=== PATIENT | female | born 1955 | race Caucasian/White ===

== ENCOUNTER 2017-09-23 21:19 | Emergency (ER) | payer BC ==
[~2017-09-23] VITALS: Ht 162.6 cm; Wt 78.9 kg
[~2017-09-23 21:19] MED LIST: MULT-506 PO
[2017-09-23 21:58] VITALS: TEMP 36.9; Ht 162.6 cm; Wt 78.9 kg
[2017-09-23 23:18] VITALS: BP 127/77; PULSE 60; O2SAT 97
--- NOTE | 2017-09-23 23:59 | EMERGENCY ROOM VISIT NOTE ---
History First contact with patient: 23:25 Chief Complaint: EYE ASSESSMENT Stated Complaint: FLASHING LIGHT AND FLOATERS IN EYE History of Present Illness The patient is a 62 year old female who presents to the Emergency Room with complaints of floaters and flashing lights in her right eye. The patient reports that since she woke up this morning, she has had floaters in her right eye. She states that these appear to be like black threads across her vision. She states there are 3-4 floaters, with one larger than the others. They are black but do not obstruct her vision. She states that this evening, she developed some flashes in the lateral part of her eye which have not been constant. Her overall vision is not decreased. She denies any pain in the eye. She denies any recent trauma to the eye. The patient reports that she had some similar issues in this eye approximately 40 years ago. She was told that this was due to her control pills and has not had any issues since then. Review of Systems A complete 10 point review of systems was reviewed with the patient with pertinent positives and negatives as per history of present illness. All else were negative. Past Medical/Surgical History Medical Problems: (1) No significant active problems Social History Smoking Status: Never Smoker Housing Status: lives with family Current/Historical Medications Scheduled Multivitamin (Multivitamin), 1 TAB PO DAILY Physical Exam Vital Signs Date Time Temp Pulse Resp B/P (MAP) Pulse Ox O2 Delivery O2 Flow Rate FiO2 09/23/17 23:18 60 18 127/77 97 Room Air 09/23/17 21:58 36.9 60 18 127/85 98 Room Air Right Eye Acuity: 20/40 Left Eye Acuity: 20/25 Physical Exam VITALS: Vitals are noted on the nurse's note and reviewed by myself. Vital signs stable. GENERAL: This is a 62-year-old female, in no acute distress, nondiaphoretic, well-developed well-nourished. SKIN: The skin was without rashes. HEAD: Normocephalic atraumatic. EYES: Pupils equal round and reactive to light and accommodation. Conjunctivae without injection. Extraocular movements intact. Funduscopic exam shows no hemorrhages or papilledema. NEURO: Patient was alert and oriented to person place and time. Medical Decision & Procedures Medical Decision Differential diagnosis includes retinal detachment, vitreous floaters, central retinal artery occlusion, central retinal vein occlusion, retinal tear, among others. The patient was evaluated as above. Her exam is unremarkable. She presents with floaters and flashes in the eye which began this morning. Patient's history is concerning for possible retinal detachment. I spoke with the leather carver on-call, Dr. Durán, who recommended that the patient follow-up first thing in the morning for a dilated eye exam. Patient was happy with this plan of care. She was given Dr. Durán's office information and instructed to call first thing in the morning to make an appointment. She verbalized her understanding of my assessment and treatment plan and was discharged home in good condition. Medication Reconcilliation Current Medication List: was personally reviewed by me Blood Pressure Screening Patient's blood pressure: Normal blood pressure Impression Primary Impression: Floaters in visual field Departure Information Dispostion Home / Self-Care Condition GOOD Referrals Cecilia Jamison D.O. (PCP) Jayden Durán MD Patient Instructions My [facility] Additional Instructions Contact Dr. Durán's office first thing in the morning to schedule an appointment. Let them know that you were seen in the emergency department and we talked to Dr. Durán. Do not make any sudden movements of your head tonight. Return to the ER if you have any concerning or worsening symptoms. Problem Qualifiers Primary Impression: Floaters in visual field Laterality: right Qualified Codes: H43.391 - Other vitreous opacities, right eye
== END 2017-09-23 23:48 | disposition home or self-care (01) ==
LOC: C.EDB 21:19
DX: H43.391 Other vitreous opacities, right eye (principal)

== ENCOUNTER 2020-02-20 18:50 | Inpatient (IN) ==
[2020-02-20] MEDS ORDERED: ONDANSETRON INJ 2 MG/ML 2 ML VIAL IV STA (19:19)
[2020-02-20] MEDS ORDERED: KETOROLAC TROMETHAMINE 15 MG/ML VIAL IV STA (19:19)
[2020-02-20] MEDS ORDERED: CEFEPIME 2,000 MG/20 ML VIAL IV STA (19:19)
[2020-02-20] MEDS ORDERED: ACETAMINOPHEN 1,000 MG/100 ML VIAL IV STA (19:19)
--- NOTE | 2020-02-20 19:25 | Emergency Department Note ---
Impression & Plan Sepsis, Cellulitis, Fever, Leukocytosis ED Provider Note NAME: JORY HUFFMAN AGE: 65 SEX: F : 1955 ARRIVES VIA: Walk-In INFORMANT: [Patient] ED PROVIDER(S): [Giorgio Pan MD] CHIEF COMPLAINT: Fever HISTORY OF PRESENT ILLNESS: The patient is a 65-year-old female who was had about 24 hours of symptoms. She has had fever, headache, body aches, nausea. She feels washed out. She is quite achy. All her pain is a 9 on a scale 1 out of 10. There has been no co ugh or congestion, no stuffy nose or sore throat. No problems with her taste or smell. She has not had urinary complaints, diarrhea. She has not had rash, no known tick bites. She has noticed some mild dyspnea. She has not had any sick contacts. No known coronavirus exposures. She just feels awful in general. REVIEW OF SYSTEMS: See HPI for pertinent positives and negatives. A total of ten systems were reviewed and were otherwise negative. PMHx/PSHx: See Below SOCIAL HISTORY: See Below. PHYSICAL EXAM: GENERAL: Patient is in no acute distress. She is wearing a mask. HEENT: No acute trauma, normocephalic atraumatic, mucous membranes moist, no nasal congestion, no scleral icterus. NECK: No stridor, no adenopathy, no meningismus, trachea is midline. LUNGS: No respiratory distress, no obvious wheezing, speaks in full sentences. HEART: Regular rate, equal radial pulses bilaterally. Equal carotid pulses bilaterally. ABDOMEN: Soft, nontender, bowel sounds positive, no hernias, no peritonitis. EXTREMITIES: No cyanosis or edema, full range of motion of all the joints without pain or difficulty, no signs for acute trauma. The patient has a healing lesion to the anterior aspect of the left ankle. Proximal to this is erythema and warmth consistent with cellulitis NEUROLOGIC: Oriented x 3, no acute motor or sensory deficits, no focal weakness. SKIN: No jaundice, no diaphoresis. DIFFERENTIAL DIAGNOSIS: Sepsis, UTI, pneumonia, metabolic, electrolyte abnormalities, Lyme disease, cellulitis, anaplasmosis, coronavirus, cardiac sources, intracerebral event, toxicologic, neurologic, as well as other pathologies. EMERGENCY DEPARTMENT COURSE/PROCEDURES: ECG: Indication was weakness. The ECG shows a normal sinus rhythm with a rate of 80. The QTc is 392. There are no PVCs, no ST elevation. There is diffuse n onspecific ST change. No old EKGs to use for comparison. Continuous Cardiac Monitoring: An order was placed for continuous cardiac monitoring. The monitor shows a rate of 86 with normal sinus rhythm. Critical Care Note: I have personally spent greater than 36 minutes of critical care time in the direct management of this patient. This includes bedside care, interpretation of diagnostic studies, and testing, discussion with consultants, patient, and family members, and other required patient management activities. This 36 minutes is in excess of all separately billable procedures. MEDICAL DECISION MAKING: There is a moderate leukocytosis at 14,000, this could be consistent with infection. There is a normal hemoglobin and platelet count. No coagulopathy. No significant electrolyte abnormality or kidney failure. Lactic acid level is not elevated making severe sepsis less likely. No concerning liver enzyme elevation. Procalcitonin level is somewhat elevated at 1.28. Urinalysis is consistent with possible infection versus contamination. Lyme disease testing was negative. Coronavirus testing was negative. Chest from does not show pneumonia or CHF. The patient was not toxic but she was febrile. She appeared to have a left lower extremity cellulitis. The patient was aggressively managed. The patient received IV saline for hydration. She was given 1.5 L. She received IV Zofran, IV Toradol, IV Tylenol, IV cefepime. The cefepime was given for empiric antibiotic coverage. The patient does meet criteria for sepsis. She has a left lower extremity cellulitis. She is feeling improved since being treated here in the ED. Given her findings, given her work-up, I do think a hospital stay is warranted. IV antibiotics, monitoring and hydration are warranted. I spoke to the patient and her , I spoke with case management. The on- call hospitalist was consulted. Past Med/Surg History Medical History No significant past medical history Social History Smoking Status: Never smoker Feels Safe at Home: Yes Allergies Allergies Allergy/AdvReac Type Severity Reaction Status Date / Time iodine Allergy Unknown RASH Unverified 02/20/20 20:43 Home Meds Home Medications Medication Instructions Recorded Confirmed multivitamin 1 tab PO DAILY@1200 02/20/20 02/20/20 Results & Data (ED) Vital Signs Vital Signs - 24 hr 02/20/20 18:52 02/20/20 19:47 02/20/20 19:49 Temperature 39.4 C H Temperature Source Oral Pulse Rate 92 H 81 Pulse Rate [Left Finger] Respiratory Rate 20 31 H Blood Pressure 114/67 124/67 Blood Pressure [Left Arm] Blood Pressure Mean 82 77 Blood Pressure Mean [Left Arm] Pulse Oximetry 99 97 Oxygen Delivery Method Room Air Room Air Sepsis Recent Fever Within 48 Hours Yes Sepsis New/Unexplained Change in Mental Status No Sepsis Action Taken by Nursing No Action Required 02/20/20 20:06 02/20/20 20:56 02/20/20 22:14 Temperature 38.2 C H 38.3 C H Temperature Source Oral Oral Pulse Rate Pulse Rate [Left Finger] 86 76 Respiratory Rate 20 20 Blood Pressure Blood Pressure [Left Arm] 113/66 111/67 Blood Pressure Mean Blood Pressure Mean [Left Arm] 81 81 Pulse Oximetry 96 97 Oxygen Delivery Method Sepsis Recent Fever Within 48 Hours Sepsis New/Unexplained Change in Mental Status Sepsis Action Taken by Jail Medications Current Medication List: was personally reviewed by me Laboratory Data Attestation: I reviewed the patient's lab results. Result diagrams: 02/20/20 20:03 02/20/20 20:03 Lab Results 02/20/20 02/20/20 02/20/20 Range/Units 19:47 19:47 20:03 WBC 14.61 H (4.8-10.8) K/uL RBC 4.43 (4.2-5.4) M/uL Hgb 13.7 (12.0-16.0) g/dL Hct 39.7 (37-47) % MCV 89.6 (80-100) fL MCH 30.9 (25-34) pg MCHC 34.5 (32-36) g/dL RDW Std Deviation 48.6 H (36.4-46.3) fL RDW Coeff of Amanda 14.8 H (11.5-14.5) % Plt Count 229 (130-400) K/uL MPV 11.2 H (7.4-10.4) fL Immature Gran % (Auto) 0.3 % Neut % (Auto) 94.3 % Lymph % (Auto) 2.5 % [place] % (Auto) 2.8 % Eos % (Auto) 0.0 % Baso % (Auto) 0.1 % Neut # (Auto) 13.77 H (1.4-6.5) K/uL Lymph # (Auto) 0.37 L (1.2-3.4) K/uL [place] # (Auto) 0.41 (0.11-0.59) K/uL Eos # (Auto) 0.00 (0-0.5) K/uL Baso # (Auto) 0.01 (0-0.2) K/uL Immature Gran # (Auto) 0.05 H (0.00-0.02) K/uL PT (9.0-12.0) Seconds INR (0.9-1.1) APTT (21.0-31.0) Seconds PTT Ratio Sodium (136-145) mmol/L Potassium (3.5-5.1) mmol/L Chloride (98-107) mmol/L Carbon Dioxide (21-32) mmol/L Anion Gap (3-11) BUN (7-18) mg/dl Creatinine (0.6-1.2) mg/dl Est Cr Clr Drug Dosing ml/min Est GFR ( Amer) Est GFR (Non-Af Amer) BUN/Creatinine Ratio (10-20) Glucose (70-99) mg/dl Lactate (0.4-2.0) mmol/L Calcium (8.5-10.1) mg/dl Magnesium (1.8-2.4) mg/dl Total Bilirubin (0.2-1) mg/dl AST (15-37) U/L ALT (12-78) U/L Alkaline Phosphatase (45-117) U/L Total Protein (6.4-8.2) gm/dl Albumin (3.4-5.0) gm/dl Globulin (2.5-4.0) gm/dl Albumin/Globulin Ratio (0.9-2) Procalcitonin (0-0.5) ng/ml Urine Color Urine Appearance (Clear) Urine pH (4.5-7.5) Ur Specific [place] (1.000-1.030) Urine Protein (Negative) Urine Glucose (UA) (Negative) Urine Ketones (Negative) Urine Blood (Negative) Urine Nitrite (Negative) Urine Bilirubin (Negative) Urine Urobilinogen (Negative) Ur Leukocyte Esterase (Negative) Urine WBC (Auto) (0-5) /hpf Urine RBC (Auto) (0-4) /hpf U Hyaline Cast (Auto) (0-5) /lpf U Epithel Cells (Auto) (0-5) /lpf Urine Bacteria (Auto) (Negative) Lyme Disease IgG Ab (Negative) Lyme Disease IgM Ab (Negative) COVID-19 Eval Order Covid19 [facility] SARS-CoV-2, RNA, NAAT NEGATIVE (NEGATIVE) 02/20/20 02/20/20 02/20/20 Range/Units 20:03 20:03 20:03 WBC (4.8-10.8) K/uL RBC (4.2-5.4) M/uL Hgb (12.0-16.0) g/dL Hct (37-47) % MCV (80-100) fL MCH (25-34) pg MCHC (32-36) g/dL RDW Std Deviation (36.4-46.3) fL RDW Coeff of Amanda (11.5-14.5) % Plt Count (130-400) K/uL MPV (7.4-10.4) fL Immature Gran % (Auto) % Neut % (Auto) % Lymph % (Auto) % [place] % (Auto) % Eos % (Auto) % Baso % (Auto) % Neut # (Auto) (1.4-6.5) K/uL Lymph # (Auto) (1.2-3.4) K/uL [place] # (Auto) (0.11-0.59) K/uL Eos # (Auto) (0-0.5) K/uL Baso # (Auto) (0-0.2) K/uL Immature Gran # (Auto) (0.00-0.02) K/uL PT 11.5 (9.0-12.0) Seconds INR 1.1 (0.9-1.1) APTT 33.5 H (21.0-31.0) Seconds PTT Ratio 1.2 Sodium 138 (136-145) mmol/L Potassium 3.6 (3.5-5.1) mmol/L Chloride 109 H (98-107) mmol/L Carbon Dioxide 19 L (21-32) mmol/L Anion Gap 10.0 (3-11) BUN 18 (7-18) mg/dl Creatinine 0.81 (0.6-1.2) mg/dl Est Cr Clr Drug Dosing 72.3 ml/min Est GFR ( Amer) 87.7 Est GFR (Non-Af Amer) 75.7 BUN/Creatinine Ratio 22.6 H (10-20) Glucose 110 H (70-99) mg/dl Lactate 1.4 (0.4-2.0) mmol/L Calcium 8.9 (8.5-10.1) mg/dl Magnesium 2.0 (1.8-2.4) mg/dl Total Bilirubin 0.5 (0.2-1) mg/dl AST 19 (15-37) U/L ALT 26 (12-78) U/L Alkaline Phosphatase 61 (45-117) U/L Total Protein 6.7 (6.4-8.2) gm/dl Albumin 3.3 L (3.4-5.0) gm/dl Globulin 3.4 (2.5-4.0) gm/dl Albumin/Globulin Ratio 1.0 (0.9-2) Procalcitonin (0-0.5) ng/ml Urine Color Urine Appearance (Clear) Urine pH (4.5-7.5) Ur Specific [place] (1.000-1.030) Urine Protein (Negative) Urine Glucose (UA) (Negative) Urine Ketones (Negative) Urine Blood (Negative) Urine Nitrite (Negative) Urine Bilirubin (Negative) Urine Urobilinogen (Negative) Ur Leukocyte Esterase (Negative) Urine WBC (Auto) (0-5) /hpf Urine RBC (Auto) (0-4) /hpf U Hyaline Cast (Auto) (0-5) /lpf U Epithel Cells (Auto) (0-5) /lpf Urine Bacteria (Auto) (Negative) Lyme Disease IgG Ab (Negative) Lyme Disease IgM Ab (Negative) COVID-19 Eval Order SARS-CoV-2, RNA, NAAT (NEGATIVE) 02/20/20 02/20/20 Range/Units 20:03 20:57 WBC (4.8-10.8) K/uL RBC (4.2-5.4) M/uL Hgb (12.0-16.0) g/dL Hct (37-47) % MCV (80-100) fL MCH (25-34) pg MCHC (32-36) g/dL RDW Std Deviation (36.4-46.3) fL RDW Coeff of Amanda (11.5-14.5) % Plt Count (130-400) K/uL MPV (7.4-10.4) fL Immature Gran % (Auto) % Neut % (Auto) % Lymph % (Auto) % [place] % (Auto) % Eos % (Auto) % Baso % (Auto) % Neut # (Auto) (1.4-6.5) K/uL Lymph # (Auto) (1.2-3.4) K/uL [place] # (Auto) (0.11-0.59) K/uL Eos # (Auto) (0-0.5) K/uL Baso # (Auto) (0-0.2) K/uL Immature Gran # (Auto) (0.00-0.02) K/uL PT (9.0-12.0) Seconds INR (0.9-1.1) APTT (21.0-31.0) Seconds PTT Ratio Sodium (136-145) mmol/L Potassium (3.5-5.1) mmol/L Chloride (98-107) mmol/L Carbon Dioxide (21-32) mmol/L Anion Gap (3-11) BUN (7-18) mg/dl Creatinine (0.6-1.2) mg/dl Est Cr Clr Drug Dosing ml/min Est GFR ( Amer) Est GFR (Non-Af Amer) BUN/Creatinine Ratio (10-20) Glucose (70-99) mg/dl Lactate (0.4-2.0) mmol/L Calcium (8.5-10.1) mg/dl Magnesium (1.8-2.4) mg/dl Total Bilirubin (0.2-1) mg/dl AST (15-37) U/L ALT (12-78) U/L Alkaline Phosphatase (45-117) U/L Total Protein (6.4-8.2) gm/dl Albumin (3.4-5.0) gm/dl Globulin (2.5-4.0) gm/dl Albumin/Globulin Ratio (0.9-2) Procalcitonin 1.28 H (0-0.5) ng/ml Urine Color Yellow Urine Appearance Cloudy A (Clear) Urine pH 5.0 (4.5-7.5) Ur Specific [place] 1.033 H (1.000-1.030) Urine Protein Trace H (Negative) Urine Glucose (UA) Negative (Negative) Urine Ketones 1+ H (Negative) Urine Blood Negative (Negative) Urine Nitrite Negative (Negative) Urine Bilirubin Negative (Negative) Urine Urobilinogen Negative (Negative) Ur Leukocyte Esterase Trace H (Negative) Urine WBC (Auto) 10-30 H (0-5) /hpf Urine RBC (Auto) 0-4 (0-4) /hpf U Hyaline Cast (Auto) 1-5 (0-5) /lpf U Epithel Cells (Auto) >30 H (0-5) /lpf Urine Bacteria (Auto) Negative (Negative) Lyme Disease IgG Ab Negative (Negative) Lyme Disease IgM Ab Negative (Negative) COVID-19 Eval Order SARS-CoV-2, RNA, NAAT (NEGATIVE) Administered Medications Discontinued Medications Sodium Chloride (Nss 1000ml) 1,000 mls @ 999 mls/hr IV .Q1H1M KARLA Stop: 02/20/20 20:30 Last Infusion: 02/20/20 20:57 Dose: 0 mls/hr Documented by: [id number] Admin: 02/20/20 19:53 Dose: 999 mls/hr Documented by: [id number] Cefepime HCl (Maxipime) 2,000 mg in 20 mls @ 5 mls/min IV NOW STA; Protocol Stop: 02/20/20 19:22 Last Admin: 02/20/20 20:04 Dose: 5 mls/min Documented by: [id number] Acetaminophen (Ofirmev) 1,000 mg in 100 mls @ 400 mls/hr IV NOW STA Stop: 02/20/20 19:33 Last Infusion: 02/20/20 20:13 Dose: 0 mls/hr Documented by: [id number] Admin: 02/20/20 19:53 Dose: 400 mls/hr Documented by: [id number] Sodium Chloride (Nss 1000ml) 500 mls @ 999 mls/hr IV .Q31M ONE Stop: 02/20/20 21:16 Last Infusion: 02/20/20 21:48 Dose: 0 mls/hr Documented by: [id number] Admin: 02/20/20 21:10 Dose: 999 mls/hr Documented by: [id number] Ketorolac Tromethamine (Ketorolac Tromethamine 15 Mg/Ml Vial) 15 mg IV NOW STA Stop: 02/20/20 19:20 Last Admin: 02/20/20 19:53 Dose: 15 mg Documented by: [id number] Ondansetron HCl (Ondansetron Inj 2 Mg/Ml 2 Ml Vial) 4 mg IV NOW STA Stop: 02/20/20 19:20 Last Admin: 02/20/20 19:53 Dose: 4 mg Documented by: [id number] Imaging Data Radiologist's Impression: SINGLE VIEW CHEST CLINICAL HISTORY: Sepsis. FINDINGS: 2 AP, portable, semierect chest radiographs are obtained. No prior studies are available for comparison at the time of dictation. The examination is degraded by portable technique and patient rotation. The heart is top normal for projection. The pulmonary vasculature is noncongested. Nonspecific interstitial thickening is likely chronic. No airspace consolidation or large pleural effusion is identified. No pneumothorax is seen. The skeletal structures are osteopenic. The bony thorax is grossly intact. IMPRESSION: No acute cardiopulmonary abnormality is identified. Blood Pressure Blood Pressure Findings: Normal blood pressure Discharge Plan Visit Data Chief Complaint: Fever Stated Complaint: FEVER, HEADACHE, CHILLS, NAUSEA, BODY ACHES ED Provider: Giorgio Pan Discharge Problem: Sepsis, Cellulitis, Fever, Leukocytosis Patient Disposition: Admitted As Inpatient Condition: Fair Forms Stand Alone Forms: [facility] SocialFlow Prescriptions Prescriptions: No Action multivitamin Tablet 1 tab PO DAILY@1200 RF: 0 Referrals Referrals: PCP,NO [Primary Care Provider] - Discharge Problem: Sepsis Qualifiers: Sepsis type: sepsis due to unspecified organism Sepsis acute organ dysfunction status: without acute organ dysfunction Qualified Code(s): A41.9 - Sepsis, unspecified organism Cellulitis Qualifiers: Site of cellulitis: extremity Site of cellulitis of extremity: lower extremity Laterality: left Qualified Code(s): L03.116 - Cellulitis of left lower limb Fever Qualifiers: Fever type: unspecified Qualified Code(s): R50.9 - Fever, unspecified Leukocytosis Qualifiers: Leukocytosis type: unspecified Qualified Code(s): D72.829 - Elevated white blood cell count, unspecified
[2020-02-20] MEDS ORDERED: SODIUM CHLORIDE 0.9% 1000ML 1,000 ML IV SCH (19:30)
[2020-02-20 20:24] LABS: Basophils # (auto) 0.01 K/uL (0-0.2); Basophils % (auto) 0.1 %; Hematocrit (blood only) 39.7 % (37-47); Hemoglobin 13.7 g/dL (12.0-16.0); Immature Granulocytes # (auto) 0.05 K/uL (0.00-0.02); Immature Granulocytes % (auto) 0.3 %; Lymphocytes # (auto) 0.37 K/uL (1.2-3.4); Lymphocytes % (auto) 2.5 %; Mean Corpuscular Hemoglobin 30.9 pg (25-34); Mean Corpuscular Hgb Conc 34.5 g/dL (32-36); Mean Corpuscular Volume 89.6 fL (80-100); Mean Platelet Volume 11.2 fL (7.4-10.4); Monocytes # (auto) 0.41 K/uL (0.11-0.59); Monocytes % (auto) 2.8 %; Neutrophils # (auto) 13.77 K/uL (1.4-6.5); Neutrophils % (auto) 94.3 %; Platelet Count 229 K/uL (130-400); RDW Coefficient of Variation 14.8 % (11.5-14.5); RDW Standard Deviation 48.6 fL (36.4-46.3); Red Blood Count 4.43 M/uL (4.2-5.4); White Blood Count 14.61 K/uL (4.8-10.8)
--- NOTE | 2020-02-20 20:26 | XRay Report ---
SINGLE VIEW CHEST CLINICAL HISTORY: Sepsis. FINDINGS: 2 AP, portable, semierect chest radiographs are obtained. No prior studies are available fo r comparison at the time of dictation. The examination is degraded by portable technique and patient rotation. The heart is top normal for projection. The pulmonary vasculature is noncongested. Nonspec ific interstitial thickening is likely chronic. No airspace consolidation or large pleural effusion i s identified. No pneumothorax is seen. The skeletal structures are osteopenic. The bony thorax is vandana ssly intact. IMPRESSION: No acute cardiopulmonary abnormality is identified. ACT 112: Negative or not required by law. Electronically signed by: Giorgio White M.D. 02/20/2020 8:25 PM
[2020-02-20 20:35] LABS: INR 1.1 (0.9-1.1); Partial Thromboplastin Ratio 1.2; Partial Thromboplastin Time 33.5 Seconds (21.0-31.0); Prothrombin Time 11.5 Seconds (9.0-12.0)
[2020-02-20 20:41] LABS: Albumin Level 3.3 gm/dl (3.4-5.0); BUN Creatinine Ratio 22.6 (10-20); Calcium 8.9 mg/dl (8.5-10.1); Creatinine Clr Calc Pharmacy 72.3 ml/min; Est GFR (African American) 87.7; Est GFR (Non-African American) 75.7; Potassium 3.6 mmol/L (3.5-5.1)
[2020-02-20 20:44] LABS: Bilirubin,Total 0.5 mg/dl (0.2-1); Globulin 3.4 gm/dl (2.5-4.0); Total Protein 6.7 gm/dl (6.4-8.2)
[2020-02-20] MEDS ORDERED: SODIUM CHLORIDE 0.9% 1000ML 500 ML IV ONE (20:46)
[2020-02-20 21:07] LABS: Procalcitonin 1.28 ng/ml (0-0.5)
[2020-02-20 21:18] LABS: Lyme Ab IgG w/WB Rflx Negative (Negative); Lyme Ab IgM w/WB Rflx Negative (Negative)
[2020-02-20 21:19] LABS: Appearance Urine Cloudy (Clear); Bacteria Urine Automated Negative (Negative); Bilirubin Urine Negative (Negative); Blood Urine Negative (Negative); Color Urine Yellow; Epithelial Cell Urine Auto >30 /lpf (0-5); Glucose Urine UA Negative (Negative); Ketones Urine 1+ (Negative); Leukocyte Esterase Urine Trace (Negative); Nitrite Urine Negative (Negative); Protein Urine Trace (Negative); RBC Urine Automated 0-4 /hpf (0-4); Specific Gravity Urine 1.033 (1.000-1.030); Urobilinogen Urine Negative (Negative)
--- NOTE | 2020-02-20 23:44 | History & Physical Report ---
Date of Service February 20, 2020 Assessment & Plan (1) Sepsis: 65-year-old female with history of bilateral lower extremity edema, mild diastolic CHF, PACs and PVCs, remote history of DVT, Presenting with fever and generalized myalgias. Sepsis likely secondary to left lower leg cellulitis Rule out bacteremia Rule out UTI Rule out anaplasmosis --Presents with a fever of 39.4 heart rate of 92, leukocytosis of 14,000 Lactic acid normal --Chest x-ray no pneumonia, COVID screen negative, --Follow-up blood and urine cultures --Follow-up anaplasmosis screen --Empiric Dapto plus Zosyn Left lower extremity cellulitis, rule out DVT --Has history of DVT in the past --Check Doppler ultrasound Rule out RA, SLE --Patient presents with diffuse arthralgias and myalgias, lower extremity edema, possible malar rash --Follow-up RF, BRI, [id number]-mtphydry DNA, C3/C4/C 50, ESR/CRP, antiphospho lipid antibody Mild diastolic dysfunction --Not on diuretics --Patient on the dry side History of PACs/PVCs --Will be monitored in [facility] telemetry DVT prophylaxis --Lovenox daily Patient has history of DVT in the remote past CODE STATUS Full code per patient Position Anticipate discharge to home medically stable History of Present Illness 65-year-old female with history of bilateral lower extremity edema, mild diastolic CHF, PACs and PVCs, remote history of DVT, Presenting with fever and generalized myalgias. Earlier this year, the patient has been worked up for lower extremity edema and palpitations. Cardiogram revealed mild diastolic dysfunction, and Holter monitor revealed PACs/PVCs. 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 Patient reports persistent lower leg edema as well as arthralgias including upper extremities and hips. She was at her usual baseline state of health until yesterday evening when she started to have fevers and chills, associated with diffuse myalgias and arthralgias. Persistence of symptoms prompted consult to the ER. At the ER, patient was received with a fever of 39.4, heart rate of 92, blood pressure 114/67. Physical exam revealed left lower leg erythema and edema. Count 14,000 COVID screen negative, chest x-ray no signs of pneumonia or infiltrates, Lyme screen negative On exam, the patient states that she still feels fatigued, with diffuse myalgias and arthralgias. Reports left lower extremity discomfort as well, mild frontal headache. Denies cough, shortness of breath, chest pain abdominal pain, problems urination or bowel movement. No other symptoms Primary Care Provider: NO PCP Allergies Allergy/AdvReac Type Severity Reaction Status Date / Time iodine Allergy Unknown RASH Unverified 02/20/20 20:43 Home Medications Home Medications Medication Instructions Recorded Confirmed Type multivitamin 1 tab PO DAILY@1200 02/20/20 02/20/20 History Past Med/Surg History Medical History No significant past medical history Social History Smoking Status: Never smoker Feels Safe at Home: Yes Review of Systems Review of Systems: All systems reviewed & are unremarkable except as noted in HPI & below Physical Exam Physical Exam: General- oriented x 3, not in distress, speaks in sentences with no effort or accessory muscle use Appears weak Head- atraumatic Face-positive malar rash Eyes- PERRL, EOMI, anicteric ENT- oropharynx clear Neck- supple, no JVD, no adenopathy, no thyromegaly; carotids +2/2, no bruits appreciated Lungs- clear to auscultation bilaterally, no rales/wheezes Heart- normal rate, regular rhythm; no murmur, no gallop, no rub appreciated Abdomen- normal bowel sounds, nondistended, soft, nontender, no masses or hepatosplenomegaly Extremities-left lower leg: Positive significant erythema, moderate edema, moderate warmth, moderate tenderness, Right lower extremity: Mild lower leg edema, no erythema/warmth/tenderness Neuro- alert, oriented x 3; CN 2-12 grossly intact; motor 5/5 bilaterally;sensation 100% on all extremities; no other gross focal neurologic deficits Skin- warm & dry Results & Data Results & Data ([facility]) Vital Signs (Past 12 Hours) Vital Signs Temp Pulse Pulse Resp BP BP Pulse Ox 02/20/20 22:14 76 20 111/67 97 02/20/20 20:56 38.3 C H 86 20 113/66 96 02/20/20 20:06 38.2 C H 02/20/20 19:49 81 31 H 124/67 97 02/20/20 18:52 39.4 C H 92 H 20 114/67 99 Laboratory Results Laboratory Results - last 24 hr 02/20/20 02/20/20 02/20/20 19:47 19:47 20:03 WBC 14.61 H RBC 4.43 Hgb 13.7 Hct 39.7 MCV 89.6 MCH 30.9 MCHC 34.5 RDW Std Deviation 48.6 H RDW Coeff of Amanda 14.8 H Plt Count 229 MPV 11.2 H Immature Gran % (Auto) 0.3 Neut % (Auto) 94.3 Lymph % (Auto) 2.5 Bullock % (Auto) 2.8 Eos % (Auto) 0.0 Baso % (Auto) 0.1 Neut # (Auto) 13.77 H Lymph # (Auto) 0.37 L Bullock # (Auto) 0.41 Eos # (Auto) 0.00 Baso # (Auto) 0.01 Immature Gran # (Auto) 0.05 H PT INR APTT PTT Ratio Sodium Potassium Chloride Carbon Dioxide Anion Gap BUN Creatinine Est Cr Clr Drug Dosing Est GFR ( Amer) Est GFR (Non-Af Amer) BUN/Creatinine Ratio Glucose Lactate Calcium Magnesium Total Bilirubin AST ALT Alkaline Phosphatase Total Protein Albumin Globulin Albumin/Globulin Ratio Procalcitonin Urine Color Urine Appearance Urine pH Ur Specific Gaston Urine Protein Urine Glucose (UA) Urine Ketones Urine Blood Urine Nitrite Urine Bilirubin Urine Urobilinogen Ur Leukocyte Esterase Urine WBC (Auto) Urine RBC (Auto) U Hyaline Cast (Auto) U Epithel Cells (Auto) Urine Bacteria (Auto) Lyme Disease IgG Ab Lyme Disease IgM Ab COVID-19 Eval Order Covid19 [facility] SARS-CoV-2, RNA, NAAT NEGATIVE 02/20/20 02/20/20 02/20/20 20:03 20:03 20:03 WBC RBC Hgb Hct MCV MCH MCHC RDW Std Deviation RDW Coeff of Amanda Plt Count MPV Immature Gran % (Auto) Neut % (Auto) Lymph % (Auto) Bullock % (Auto) Eos % (Auto) Baso % (Auto) Neut # (Auto) Lymph # (Auto) Bullock # (Auto) Eos # (Auto) Baso # (Auto) Immature Gran # (Auto) PT 11.5 INR 1.1 APTT 33.5 H PTT Ratio 1.2 Sodium 138 Potassium 3.6 Chloride 109 H Carbon Dioxide 19 L Anion Gap 10.0 BUN 18 Creatinine 0.81 Est Cr Clr Drug Dosing 72.3 Est GFR ( Amer) 87.7 Est GFR (Non-Af Amer) 75.7 BUN/Creatinine Ratio 22.6 H Glucose 110 H Lactate 1.4 Calcium 8.9 Magnesium 2.0 Total Bilirubin 0.5 AST 19 ALT 26 Alkaline Phosphatase 61 Total Protein 6.7 Albumin 3.3 L Globulin 3.4 Albumin/Globulin Ratio 1.0 Procalcitonin Urine Color Urine Appearance Urine pH Ur Specific Gaston Urine Protein Urine Glucose (UA) Urine Ketones Urine Blood Urine Nitrite Urine Bilirubin Urine Urobilinogen Ur Leukocyte Esterase Urine WBC (Auto) Urine RBC (Auto) U Hyaline Cast (Auto) U Epithel Cells (Auto) Urine Bacteria (Auto) Lyme Disease IgG Ab Lyme Disease IgM Ab COVID-19 Eval Order SARS-CoV-2, RNA, NAAT 02/20/20 02/20/20 20:03 20:57 WBC RBC Hgb Hct MCV MCH MCHC RDW Std Deviation RDW Coeff of Amanda Plt Count MPV Immature Gran % (Auto) Neut % (Auto) Lymph % (Auto) Bullock % (Auto) Eos % (Auto) Baso % (Auto) Neut # (Auto) Lymph # (Auto) Bullock # (Auto) Eos # (Auto) Baso # (Auto) Immature Gran # (Auto) PT INR APTT PTT Ratio Sodium Potassium Chloride Carbon Dioxide Anion Gap BUN Creatinine Est Cr Clr Drug Dosing Est GFR ( Amer) Est GFR (Non-Af Amer) BUN/Creatinine Ratio Glucose Lactate Calcium Magnesium Total Bilirubin AST ALT Alkaline Phosphatase Total Protein Albumin Globulin Albumin/Globulin Ratio Procalcitonin 1.28 H Urine Color Yellow Urine Appearance Cloudy A Urine pH 5.0 Ur Specific Gaston 1.033 H Urine Protein Trace H Urine Glucose (UA) Negative Urine Ketones 1+ H Urine Blood Negative Urine Nitrite Negative Urine Bilirubin Negative Urine Urobilinogen Negative Ur Leukocyte Esterase Trace H Urine WBC (Auto) 10-30 H Urine RBC (Auto) 0-4 U Hyaline Cast (Auto) 1-5 U Epithel Cells (Auto) >30 H Urine Bacteria (Auto) Negative Lyme Disease IgG Ab Negative Lyme Disease IgM Ab Negative COVID-19 Eval Order SARS-CoV-2, RNA, NAAT Code Status & VTE Plan VTE Prophylaxis Plan VTE Prophylaxis will be ordered: Yes (1) Sepsis Sepsis acute organ dysfunction status: without acute organ dysfunction Sepsis type: sepsis due to unspecified organism Qualified Code(s): A41.9 - Sepsis, unspecified organism
[2020-02-21] MEDS ORDERED: ONDANSETRON INJ 2 MG/ML 2 ML VIAL IV PRN (00:57)
[2020-02-21] MEDS ORDERED: DAPTOMYCIN CONSULT ACTIVE PRN (01:07)
[2020-02-21] MEDS ORDERED: CEFEPIME CONSULT ACTIVE PRN (01:07)
[2020-02-21] MEDS ORDERED: PIPERACILL/TAZOBAC CONSULT ACTIVE PRN (01:09)
[2020-02-21] MEDS ORDERED: PIPERACILLIN/TAZOBACTAM 3.375 GM in DEXTROSE 5% 100 ML IV ONE (01:15)
[2020-02-21] MEDS: DAPTOmycin 225 MG in SYRINGE 0 ML IV SCH ×2 (02:22→23:28)
[2020-02-21] MEDS: D5NSS + 20MEQ KCL 20 MEQ/1,000 ML BAG IV SCH ×3 (02:22→23:28)
[2020-02-21] MEDS: PIPERACILLIN/TAZOBACTAM 3.375 GM in DEXTROSE 5% 100 ML IV SCH ×3 (05:44→21:54)
--- NOTE | 2020-02-21 06:33 | Ultrasound Report ---
US venous doppler LE LT CLINICAL HISTORY: leg swelling, pain, r/o dvt COMPARISON STUDY: No previous studies for comparison. FINDINGS: Real-time and color flow Doppler imaging were performed. Flow was seen within the femoral, popliteal and calf veins with no intraluminal thrombus demonstrated. The saphenous vein is patent. Th ere are prominent left inguinal lymph nodes, one of which demonstrates fatty hilar replacement. The l eft medial calf, there is a 19 mm shadowing focus, likely resenting a calcification or foreign body. IMPRESSION: 1. No evidence of left lower extremity DVT 2. Nonspecific prominent left inguinal lymph nodes 3. 19 mm shadowing focus within the left medial calf, likely representing a calcification or foreign body ACT 112: Negative or not required by law. Electronically signed by: Daren Johnson M.D. 02/21/2020 6:31 AM
[2020-02-21 09:02] LABS: Hemoglobin 12.5 g/dL (12.0-16.0); Mean Corpuscular Hemoglobin 30.6 pg (25-34); Mean Corpuscular Hgb Conc 33.8 g/dL (32-36); Mean Corpuscular Volume 90.7 fL (80-100); Mean Platelet Volume 11.3 fL (7.4-10.4); Platelet Count 208 K/uL (130-400); RDW Coefficient of Variation 15.1 % (11.5-14.5); RDW Standard Deviation 50.8 fL (36.4-46.3); Red Blood Count 4.08 M/uL (4.2-5.4); White Blood Count 11.39 K/uL (4.8-10.8)
[2020-02-21 09:10] LABS: BUN Creatinine Ratio 21.7 (10-20); Calcium 8.5 mg/dl (8.5-10.1); Creatinine Clr Calc Pharmacy 72.2 ml/min; Est GFR (African American) 87.7; Est GFR (Non-African American) 75.7; Potassium 3.7 mmol/L (3.5-5.1)
[2020-02-21] MEDS ORDERED: POTASSIUM CHLORIDE 20 MEQ TABCR PO STA (09:20)
--- NOTE | 2020-02-21 09:30 | Hospitalist Progress Note ---
Date of Service February 21, 2020 Assessment & Plan (1) Sepsis: 65-year-old female with history of bilateral lower extremity edema, mild diastolic CHF, PACs and PVCs, remote history of DVT, Presenting with fever and generalized myalgias. Sepsis likely secondary to left lower leg cellulitis Rule out bacteremia Rule out UTI Rule out anaplasmosis --Presents with a fever of 39.4 heart rate of 92, leukocytosis of 14,000 Lactic acid normal --Chest x-ray no pneumonia, COVID screen negative, --Follow-up blood and urine cultures -Urine culture reviewed, in EMR it states to call lab [facility] and ask for internal laboratory review of this culture report. Lab was called, I was advised to call lab tomorrow (02/21) before 3 PM. --Follow-up anaplasmosis screen --Empiric Dapto plus Zosyn Left lower extremity cellulitis, rule out DVT --Has history of DVT in the past --Check Doppler ultrasound - no DVT, however there is calcification/foreign object noted. Per patient there should not be any foreign object. Rule out RA, SLE --Patient presents with diffuse arthralgias and myalgias, lower extremity edema, possible malar rash --Follow-up RF, BRI, ones-nhnssm-khbsoxsg DNA, C3/C4/C 50, ESR/CRP, antiphospholipid antibody Mild diastolic dysfunction --Not on diuretics --Patient on the dry side History of PACs/PVCs --Will be monitored in [facility] telemetry DVT prophylaxis --Lovenox daily Patient has history of DVT in the remote past CODE STATUS Full code per patient Position Anticipate discharge to home medically stable Admission and Anticipated Discharge Date Admission Date: February 20, 2020 Subjective Patient is lying in bed, in no acute distress, however she says that she does not feel well, and has a headache, she feels weak. Denies fevers, chills, chest pain, shortness of breath. Denies abdominal pain, nausea or vomiting. Review of Systems Review of Systems: All systems reviewed & are unremarkable except as noted in HPI & below Constitutional: no fever and no chills Respiratory: no cough and no dyspnea Cardiovascular: no chest pain and no palpitations Gastrointestinal: no abdominal pain, no nausea and no vomiting Physical Exam Physical Exam: General- alert and oriented x 3, not in distress, speaks in sentences with no effort or accessory muscle use but appears weak Head- normocephalic, atraumatic Eyes- PERRL, EOMI, anicteric ENT- oropharynx clear Neck- supple, no JVD Lungs- clear to auscultation bilaterally, no rales/rhonchi/wheezes Heart- normal rate, regular rhythm; no murmur Abdomen- normal bowel sounds, nondistended, soft, nontender Extremities- left lower leg: Positive significant erythema (marked on admission however it was not far from erythema border), moderate edema, moderate warmth, moderate tenderness, Right lower extremity: Mild lower leg edema, no erythema/warmth/tenderness Neuro- alert and oriented x3, no facial asymmetry, speech fluent, hard of hearing, moves all 4 extremities spontaneously Skin- warm & dry Results & Data Results & Data ([facility]) Vital Signs (Past 12 Hours) Vital Signs Temp Pulse Pulse Resp BP BP Pulse Ox 02/21/20 07:19 59 L 02/21/20 07:06 36.7 C 64 19 93/54 L 98 02/21/20 04:25 37.2 C 66 16 106/60 96 02/21/20 03:42 36.6 C 58 L 18 97/56 L 96 02/20/20 23:52 37.3 C 02/20/20 23:30 71 21 104/66 97 02/20/20 23:00 65 19 106/65 96 02/20/20 22:14 76 20 111/67 97 Laboratory Results 02/21/20 02/21/20 02/21/20 Range/Units 06:03 06:03 05:58 WBC 11.39 H (4.8-10.8) K/uL RBC 4.08 L (4.2-5.4) M/uL Hgb 12.5 (12.0-16.0) g/dL Hct 37.0 (37-47) % MCV 90.7 (80-100) fL MCH 30.6 (25-34) pg MCHC 33.8 (32-36) g/dL RDW Std Deviation 50.8 H (36.4-46.3) fL RDW Coeff of Amanda 15.1 H (11.5-14.5) % Plt Count 208 (130-400) K/uL MPV 11.3 H (7.4-10.4) fL Immature Gran % (Auto) % Neut % (Auto) % Lymph % (Auto) % [place] % (Auto) % Eos % (Auto) % Baso % (Auto) % Neut # (Auto) (1.4-6.5) K/uL Lymph # (Auto) (1.2-3.4) K/uL [place] # (Auto) (0.11-0.59) K/uL Eos # (Auto) (0-0.5) K/uL Baso # (Auto) (0-0.2) K/uL Immature Gran # (Auto) (0.00-0.02) K/uL Absolute Nucleated RBC (0-0) K/uL Nucleated RBC % (auto) % ESR (0-21) mm/hr PT (9.0-12.0) Seconds INR (0.9-1.1) APTT (21.0-31.0) Seconds PTT Ratio Sodium 141 (136-145) mmol/L Potassium 3.7 (3.5-5.1) mmol/L Chloride 113 H (98-107) mmol/L Carbon Dioxide 22 (21-32) mmol/L Anion Gap 6.0 (3-11) BUN 18 (7-18) mg/dl Creatinine 0.81 (0.6-1.2) mg/dl Est Cr Clr Drug Dosing 72.2 ml/min Est GFR ( Amer) 87.7 Est GFR (Non-Af Amer) 75.7 BUN/Creatinine Ratio 21.7 H (10-20) Glucose 115 H (70-99) mg/dl Lactate (0.4-2.0) mmol/L Calcium 8.5 (8.5-10.1) mg/dl Magnesium (1.8-2.4) mg/dl Total Bilirubin (0.2-1) mg/dl AST (15-37) U/L ALT (12-78) U/L Alkaline Phosphatase (45-117) U/L C-Reactive Protein (0-0.29) mg/dl Total Protein (6.4-8.2) gm/dl Albumin (3.4-5.0) gm/dl Globulin (2.5-4.0) gm/dl Albumin/Globulin Ratio (0.9-2) Procalcitonin (0-0.5) ng/ml Urine Color Urine Appearance (Clear) Urine pH (4.5-7.5) Ur Specific [place] (1.000-1.030) Urine Protein (Negative) Urine Glucose (UA) (Negative) Urine Ketones (Negative) Urine Blood (Negative) Urine Nitrite (Negative) Urine Bilirubin (Negative) Urine Urobilinogen (Negative) Ur Leukocyte Esterase (Negative) Urine WBC (Auto) (0-5) /hpf Urine RBC (Auto) (0-4) /hpf U Hyaline Cast (Auto) (0-5) /lpf U Epithel Cells (Auto) (0-5) /lpf Urine Bacteria (Auto) (Negative) Rheumatoid Factor Pending BRI Screen Pending Double Strand DNA Ab Pending Beta-2-GPI IgG Ab Pending Beta-2-GPI IgA Ab Pending Beta-2-GPI IgM Ab Pending Phosphatidylserine IgG Pending Phosphatidylserine IgA Pending Phosphatidylserine IgM Pending Anti-Phospholipid Intrp Pending Anti-Cardiolipin IgG Ab Pending Anti-Cardiolipin IgA Ab Pending Anti-Cardiolipin IgM Ab Pending Complement C3 Pending Complement C4 Pending Tot Complement (CH50) Pending Anaplasma Smear A. phagocytophilum DNA Lyme Disease IgG Ab (Negative) Lyme Disease IgM Ab (Negative) COVID-19 Eval Order SARS-CoV-2, RNA, NAAT (NEGATIVE) 02/21/20 02/20/20 02/20/20 Range/Units 05:58 20:57 20:03 WBC (4.8-10.8) K/uL RBC (4.2-5.4) M/uL Hgb (12.0-16.0) g/dL Hct (37-47) % MCV (80-100) fL MCH (25-34) pg MCHC (32-36) g/dL RDW Std Deviation (36.4-46.3) fL RDW Coeff of Amanda (11.5-14.5) % Plt Count (130-400) K/uL MPV (7.4-10.4) fL Immature Gran % (Auto) % Neut % (Auto) % Lymph % (Auto) % [place] % (Auto) % Eos % (Auto) % Baso % (Auto) % Neut # (Auto) (1.4-6.5) K/uL Lymph # (Auto) (1.2-3.4) K/uL [place] # (Auto) (0.11-0.59) K/uL Eos # (Auto) (0-0.5) K/uL Baso # (Auto) (0-0.2) K/uL Immature Gran # (Auto) (0.00-0.02) K/uL Absolute Nucleated RBC (0-0) K/uL Nucleated RBC % (auto) % ESR 13 (0-21) mm/hr PT (9.0-12.0) Seconds INR (0.9-1.1) APTT (21.0-31.0) Seconds PTT Ratio Sodium (136-145) mmol/L Potassium (3.5-5.1) mmol/L Chloride (98-107) mmol/L Carbon Dioxide (21-32) mmol/L Anion Gap (3-11) BUN (7-18) mg/dl Creatinine (0.6-1.2) mg/dl Est Cr Clr Drug Dosing ml/min Est GFR ( Amer) Est GFR (Non-Af Amer) BUN/Creatinine Ratio (10-20) Glucose (70-99) mg/dl Lactate (0.4-2.0) mmol/L Calcium (8.5-10.1) mg/dl Magnesium (1.8-2.4) mg/dl Total Bilirubin (0.2-1) mg/dl AST (15-37) U/L ALT (12-78) U/L Alkaline Phosphatase (45-117) U/L C-Reactive Protein (0-0.29) mg/dl Total Protein (6.4-8.2) gm/dl Albumin (3.4-5.0) gm/dl Globulin (2.5-4.0) gm/dl Albumin/Globulin Ratio (0.9-2) Procalcitonin (0-0.5) ng/ml Urine Color Yellow Urine Appearance Cloudy A (Clear) Urine pH 5.0 (4.5-7.5) Ur Specific [place] 1.033 H (1.000-1.030) Urine Protein Trace H (Negative) Urine Glucose (UA) Negative (Negative) Urine Ketones 1+ H (Negative) Urine Blood Negative (Negative) Urine Nitrite Negative (Negative) Urine Bilirubin Negative (Negative) Urine Urobilinogen Negative (Negative) Ur Leukocyte Esterase Trace H (Negative) Urine WBC (Auto) 10-30 H (0-5) /hpf Urine RBC (Auto) 0-4 (0-4) /hpf U Hyaline Cast (Auto) 1-5 (0-5) /lpf U Epithel Cells (Auto) >30 H (0-5) /lpf Urine Bacteria (Auto) Negative (Negative) Rheumatoid Factor BRI Screen Double Strand DNA Ab Beta-2-GPI IgG Ab Beta-2-GPI IgA Ab Beta-2-GPI IgM Ab Phosphatidylserine IgG Phosphatidylserine IgA Phosphatidylserine IgM Anti-Phospholipid Intrp Anti-Cardiolipin IgG Ab Anti-Cardiolipin IgA Ab Anti-Cardiolipin IgM Ab Complement C3 Complement C4 Tot Complement (CH50) Anaplasma Smear A. phagocytophilum DNA Pending Lyme Disease IgG Ab (Negative) Lyme Disease IgM Ab (Negative) COVID-19 Eval Order SARS-CoV-2, RNA, NAAT (NEGATIVE) 02/20/20 02/20/20 02/20/20 Range/Units 20:03 20:03 20:03 WBC (4.8-10.8) K/uL RBC (4.2-5.4) M/uL Hgb (12.0-16.0) g/dL Hct (37-47) % MCV (80-100) fL MCH (25-34) pg MCHC (32-36) g/dL RDW Std Deviation (36.4-46.3) fL RDW Coeff of Amanda (11.5-14.5) % Plt Count (130-400) K/uL MPV (7.4-10.4) fL Immature Gran % (Auto) % Neut % (Auto) % Lymph % (Auto) % [place] % (Auto) % Eos % (Auto) % Baso % (Auto) % Neut # (Auto) (1.4-6.5) K/uL Lymph # (Auto) (1.2-3.4) K/uL [place] # (Auto) (0.11-0.59) K/uL Eos # (Auto) (0-0.5) K/uL Baso # (Auto) (0-0.2) K/uL Immature Gran # (Auto) (0.00-0.02) K/uL Absolute Nucleated RBC (0-0) K/uL Nucleated RBC % (auto) % ESR (0-21) mm/hr PT (9.0-12.0) Seconds INR (0.9-1.1) APTT (21.0-31.0) Seconds PTT Ratio Sodium 138 (136-145) mmol/L Potassium 3.6 (3.5-5.1) mmol/L Chloride 109 H (98-107) mmol/L Carbon Dioxide 19 L (21-32) mmol/L Anion Gap 10.0 (3-11) BUN 18 (7-18) mg/dl Creatinine 0.81 (0.6-1.2) mg/dl Est Cr Clr Drug Dosing 72.3 ml/min Est GFR ( Amer) 87.7 Est GFR (Non-Af Amer) 75.7 BUN/Creatinine Ratio 22.6 H (10-20) Glucose 110 H (70-99) mg/dl Lactate 1.4 (0.4-2.0) mmol/L Calcium 8.9 (8.5-10.1) mg/dl Magnesium 2.0 (1.8-2.4) mg/dl Total Bilirubin 0.5 (0.2-1) mg/dl AST 19 (15-37) U/L ALT 26 (12-78) U/L Alkaline Phosphatase 61 (45-117) U/L C-Reactive Protein 12.00 H (0-0.29) mg/dl Total Protein 6.7 (6.4-8.2) gm/dl Albumin 3.3 L (3.4-5.0) gm/dl Globulin 3.4 (2.5-4.0) gm/dl Albumin/Globulin Ratio 1.0 (0.9-2) Procalcitonin 1.28 H (0-0.5) ng/ml Urine Color Urine Appearance (Clear) Urine pH (4.5-7.5) Ur Specific [place] (1.000-1.030) Urine Protein (Negative) Urine Glucose (UA) (Negative) Urine Ketones (Negative) Urine Blood (Negative) Urine Nitrite (Negative) Urine Bilirubin (Negative) Urine Urobilinogen (Negative) Ur Leukocyte Esterase (Negative) Urine WBC (Auto) (0-5) /hpf Urine RBC (Auto) (0-4) /hpf U Hyaline Cast (Auto) (0-5) /lpf U Epithel Cells (Auto) (0-5) /lpf Urine Bacteria (Auto) (Negative) Rheumatoid Factor BRI Screen Double Strand DNA Ab Beta-2-GPI IgG Ab Beta-2-GPI IgA Ab Beta-2-GPI IgM Ab Phosphatidylserine IgG Phosphatidylserine IgA Phosphatidylserine IgM Anti-Phospholipid Intrp Anti-Cardiolipin IgG Ab Anti-Cardiolipin IgA Ab Anti-Cardiolipin IgM Ab Complement C3 Complement C4 Tot Complement (CH50) Anaplasma Smear A. phagocytophilum DNA Lyme Disease IgG Ab Negative (Negative) Lyme Disease IgM Ab Negative (Negative) COVID-19 Eval Order SARS-CoV-2, RNA, NAAT (NEGATIVE) 02/20/20 02/20/20 02/20/20 Range/Units 20:03 20:03 19:47 WBC 14.61 H (4.8-10.8) K/uL RBC 4.43 (4.2-5.4) M/uL Hgb 13.7 (12.0-16.0) g/dL Hct 39.7 (37-47) % MCV 89.6 (80-100) fL MCH 30.9 (25-34) pg MCHC 34.5 (32-36) g/dL RDW Std Deviation 48.6 H (36.4-46.3) fL RDW Coeff of Amanda 14.8 H (11.5-14.5) % Plt Count 229 (130-400) K/uL MPV 11.2 H (7.4-10.4) fL Immature Gran % (Auto) 0.3 % Neut % (Auto) 94.3 % Lymph % (Auto) 2.5 % [place] % (Auto) 2.8 % Eos % (Auto) 0.0 % Baso % (Auto) 0.1 % Neut # (Auto) 13.77 H (1.4-6.5) K/uL Lymph # (Auto) 0.37 L (1.2-3.4) K/uL [place] # (Auto) 0.41 (0.11-0.59) K/uL Eos # (Auto) 0.00 (0-0.5) K/uL Baso # (Auto) 0.01 (0-0.2) K/uL Immature Gran # (Auto) 0.05 H (0.00-0.02) K/uL Absolute Nucleated RBC 0.00 (0-0) K/uL Nucleated RBC % (auto) 0.0 % ESR (0-21) mm/hr PT 11.5 (9.0-12.0) Seconds INR 1.1 (0.9-1.1) APTT 33.5 H (21.0-31.0) Seconds PTT Ratio 1.2 Sodium (136-145) mmol/L Potassium (3.5-5.1) mmol/L Chloride (98-107) mmol/L Carbon Dioxide (21-32) mmol/L Anion Gap (3-11) BUN (7-18) mg/dl Creatinine (0.6-1.2) mg/dl Est Cr Clr Drug Dosing ml/min Est GFR ( Amer) Est GFR (Non-Af Amer) BUN/Creatinine Ratio (10-20) Glucose (70-99) mg/dl Lactate (0.4-2.0) mmol/L Calcium (8.5-10.1) mg/dl Magnesium (1.8-2.4) mg/dl Total Bilirubin (0.2-1) mg/dl AST (15-37) U/L ALT (12-78) U/L Alkaline Phosphatase (45-117) U/L C-Reactive Protein (0-0.29) mg/dl Total Protein (6.4-8.2) gm/dl Albumin (3.4-5.0) gm/dl Globulin (2.5-4.0) gm/dl Albumin/Globulin Ratio (0.9-2) Procalcitonin (0-0.5) ng/ml Urine Color Urine Appearance (Clear) Urine pH (4.5-7.5) Ur Specific [place] (1.000-1.030) Urine Protein (Negative) Urine Glucose (UA) (Negative) Urine Ketones (Negative) Urine Blood (Negative) Urine Nitrite (Negative) Urine Bilirubin (Negative) Urine Urobilinogen (Negative) Ur Leukocyte Esterase (Negative) Urine WBC (Auto) (0-5) /hpf Urine RBC (Auto) (0-4) /hpf U Hyaline Cast (Auto) (0-5) /lpf U Epithel Cells (Auto) (0-5) /lpf Urine Bacteria (Auto) (Negative) Rheumatoid Factor BRI Screen Double Strand DNA Ab Beta-2-GPI IgG Ab Beta-2-GPI IgA Ab Beta-2-GPI IgM Ab Phosphatidylserine IgG Phosphatidylserine IgA Phosphatidylserine IgM Anti-Phospholipid Intrp Anti-Cardiolipin IgG Ab Anti-Cardiolipin IgA Ab Anti-Cardiolipin IgM Ab Complement C3 Complement C4 Tot Complement (CH50) Anaplasma Smear See Comment A. phagocytophilum DNA Lyme Disease IgG Ab (Negative) Lyme Disease IgM Ab (Negative) COVID-19 Eval Order SARS-CoV-2, RNA, NAAT NEGATIVE (NEGATIVE) 02/20/20 Range/Units 19:47 WBC (4.8-10.8) K/uL RBC (4.2-5.4) M/uL Hgb (12.0-16.0) g/dL Hct (37-47) % MCV (80-100) fL MCH (25-34) pg MCHC (32-36) g/dL RDW Std Deviation (36.4-46.3) fL RDW Coeff of Amanda (11.5-14.5) % Plt Count (130-400) K/uL MPV (7.4-10.4) fL Immature Gran % (Auto) % Neut % (Auto) % Lymph % (Auto) % [place] % (Auto) % Eos % (Auto) % Baso % (Auto) % Neut # (Auto) (1.4-6.5) K/uL Lymph # (Auto) (1.2-3.4) K/uL [place] # (Auto) (0.11-0.59) K/uL Eos # (Auto) (0-0.5) K/uL Baso # (Auto) (0-0.2) K/uL Immature Gran # (Auto) (0.00-0.02) K/uL Absolute Nucleated RBC (0-0) K/uL Nucleated RBC % (auto) % ESR (0-21) mm/hr PT (9.0-12.0) Seconds INR (0.9-1.1) APTT (21.0-31.0) Seconds PTT Ratio Sodium (136-145) mmol/L Potassium (3.5-5.1) mmol/L Chloride (98-107) mmol/L Carbon Dioxide (21-32) mmol/L Anion Gap (3-11) BUN (7-18) mg/dl Creatinine (0.6-1.2) mg/dl Est Cr Clr Drug Dosing ml/min Est GFR ( Amer) Est GFR (Non-Af Amer) BUN/Creatinine Ratio (10-20) Glucose (70-99) mg/dl Lactate (0.4-2.0) mmol/L Calcium (8.5-10.1) mg/dl Magnesium (1.8-2.4) mg/dl Total Bilirubin (0.2-1) mg/dl AST (15-37) U/L ALT (12-78) U/L Alkaline Phosphatase (45-117) U/L C-Reactive Protein (0-0.29) mg/dl Total Protein (6.4-8.2) gm/dl Albumin (3.4-5.0) gm/dl Globulin (2.5-4.0) gm/dl Albumin/Globulin Ratio (0.9-2) Procalcitonin (0-0.5) ng/ml Urine Color Urine Appearance (Clear) Urine pH (4.5-7.5) Ur Specific [place] (1.000-1.030) Urine Protein (Negative) Urine Glucose (UA) (Negative) Urine Ketones (Negative) Urine Blood (Negative) Urine Nitrite (Negative) Urine Bilirubin (Negative) Urine Urobilinogen (Negative) Ur Leukocyte Esterase (Negative) Urine WBC (Auto) (0-5) /hpf Urine RBC (Auto) (0-4) /hpf U Hyaline Cast (Auto) (0-5) /lpf U Epithel Cells (Auto) (0-5) /lpf Urine Bacteria (Auto) (Negative) Rheumatoid Factor BRI Screen Double Strand DNA Ab Beta-2-GPI IgG Ab Beta-2-GPI IgA Ab Beta-2-GPI IgM Ab Phosphatidylserine IgG Phosphatidylserine IgA Phosphatidylserine IgM Anti-Phospholipid Intrp Anti-Cardiolipin IgG Ab Anti-Cardiolipin IgA Ab Anti-Cardiolipin IgM Ab Complement C3 Complement C4 Tot Complement (CH50) Anaplasma Smear A. phagocytophilum DNA Lyme Disease IgG Ab (Negative) Lyme Disease IgM Ab (Negative) COVID[facility]19 [facility] SARS-CoV-2, RNA, NAAT (NEGATIVE) Medications Administered Current Inpatient Medications Acetaminophen (Acetaminophen 325 Mg Tab) 650 mg PO Q6H PRN PRN Reason: fever/pain Stop: 03/22/20 00:56 Enoxaparin Sodium (Enoxaparin Inj 40 Mg/0.4 Ml Syr) 40 mg SQ QAM KARLA Stop: 03/22/20 08:59 Potassium Chloride/Dextrose/Sod Cl (D5nss + 20meq Kcl) 20 meq in 1,000 mls @ 80 mls/hr IV .[id number] KARLA Stop: 03/22/20 01:14 Last Admin: 02/21/20 02:22 Dose: 80 mls/hr Documented by: Daptomycin 225 mg/ Syringe 4.5 mls @ 2.25 mls/min IV Q24H [facility]; Protocol Stop: 02/28/20 01:14 Last Admin: 02/21/20 02:22 Dose: 2.25 mls/min Documented by: Piperacillin Sod/Tazobactam (Sod 3.375 gm/ Dextrose) 115 mls @ 28.75 mls/hr IV Q8H [facility]; Protocol Stop: 02/28/20 05:59 Last Admin: 02/21/20 05:44 Dose: 28.8 mls/hr Documented by: Miscellaneous Information (Daptomycin Consult Active) 1 ea N/A UD PRN PRN Reason: Consult Stop: 03/22/20 01:06 Miscellaneous Information (Piperacill/Tazobac Consult Active) 1 ea N/A UD PRN PRN Reason: Consult Stop: 03/22/20 01:08 Multivitamins (Multivitamin Tab) 1 tab PO DAILY@1200 KARLA Stop: 03/22/20 11:59 Ondansetron HCl (Ondansetron Inj 2 Mg/Ml 2 Ml Vial) 4 mg IV Q6H PRN PRN Reason: nausea Stop: 03/22/20 00:56 (1) Sepsis Sepsis acute organ dysfunction status: without acute organ dysfunction Sepsis type: sepsis due to unspecified organism Qualified Code(s): A41.9 - Sepsis, unspecified organism
[2020-02-21] MEDS: ENOXAPARIN INJ 40 MG/0.4 ML SYR SQ SCH (09:42)
[2020-02-21] MEDS ORDERED: CEFEPIME 2,000 MG in SYRINGE 7.5 ML IV SCH (10:00)
--- NOTE | 2020-02-21 10:19 | Electrocardiogram Report ---
Test Reason : Blood Pressure : / mmHG Vent. Rate : 080 BPM Atrial Rate : 080 BPM P-R Int : 168 ms QRS Dur : 084 ms QT Int : 340 ms P-R-T Axes : 052 -40 084 degrees QTc Int : 392 ms Poor data quality, interpretation may be adversely affected Normal sinus rhythm Left axis deviation Poor R wave progression, consider anterior CA vs. lead placement vs. LVH Nonspecific ST and T wave abnormality Abnormal ECG No previous ECGs available Confirmed by Saud Diaz ([id number]) on 02/21/2020 10:19:42 AM Referred By: REFERRED SELF Confirmed By:Saud Diaz
[2020-02-21] MEDS ORDERED: SODIUM CHLORIDE 0.9% 500 ML IV SCH (10:30)
[2020-02-21] MEDS: MULTIVITAMIN TAB PO SCH (10:55)
[2020-02-21] MEDS: ACETAMINOPHEN 325 MG TAB PO PRN (11:16)
[2020-02-21] MEDS: DiphenhydrAMINE 2%/ZINC 0.1% CREAM 28GM TUBE EXT PRN (21:52)
[2020-02-21] MEDS: CALAMINE/PRAMOXINE LOTION 180 APPLN/180 ML BTL EXT PRN (21:52)
[2020-02-22 06:17] LABS: Hematocrit (blood only) 35.9 % (37-47); Hemoglobin 11.8 g/dL (12.0-16.0); Mean Corpuscular Hemoglobin 30.5 pg (25-34); Mean Corpuscular Hgb Conc 32.9 g/dL (32-36); Mean Corpuscular Volume 92.8 fL (80-100); Mean Platelet Volume 11.1 fL (7.4-10.4); Platelet Count 205 K/uL (130-400); RDW Coefficient of Variation 15.7 % (11.5-14.5); RDW Standard Deviation 53.2 fL (36.4-46.3); Red Blood Count 3.87 M/uL (4.2-5.4); White Blood Count 7.59 K/uL (4.8-10.8)
[2020-02-22] MEDS: DiphenhydrAMINE 2%/ZINC 0.1% CREAM 28GM TUBE EXT PRN (06:30)
[2020-02-22] MEDS: PIPERACILLIN/TAZOBACTAM 3.375 GM in DEXTROSE 5% 100 ML IV SCH ×3 (06:31→21:45)
[2020-02-22] MEDS: CALAMINE/PRAMOXINE LOTION 180 APPLN/180 ML BTL EXT PRN ×2 (06:31→14:31)
[2020-02-22] MEDS: ACETAMINOPHEN 325 MG TAB PO PRN (06:37)
[2020-02-22 06:55] LABS: BUN Creatinine Ratio 15.4 (10-20); Calcium 8.7 mg/dl (8.5-10.1); Creatinine Clr Calc Pharmacy 83.6 ml/min; Est GFR (African American) 104.6; Est GFR (Non-African American) 90.3; Potassium 3.8 mmol/L (3.5-5.1)
[2020-02-22] MEDS: ENOXAPARIN INJ 40 MG/0.4 ML SYR SQ SCH (09:29)
[2020-02-22] MEDS: D5NSS + 20MEQ KCL 20 MEQ/1,000 ML BAG IV SCH (09:30)
[2020-02-22] MEDS: MULTIVITAMIN TAB PO SCH (12:10)
[2020-02-22] MEDS: IBUPROFEN 600 MG TAB PO PRN ×2 (15:22→21:48)
--- NOTE | 2020-02-22 16:14 | Hospitalist Progress Note ---
Date of Service February 22, 2020 Assessment & Plan (1) Sepsis: 65-year-old female with history of bilateral lower extremity edema, mild diastolic CHF, PACs and PVCs, remote history of DVT, Presenting with fever and generalized myalgias. Sepsis secondary to left lower leg cellulitis Urine and blood cultures have been negative She has been on intravenous daptomycin and Zosyn No fever and/or chills and no increase in white count We will change antibiotic to intravenous Unasyn and transition to oral Augmentin upon discharge Presented with a fever of 39.4 heart rate of 92, leukocytosis of 14,000 Lyme titers and anaplasmosis smear have been negative Chest x-ray no pneumonia, COVID screen negative, Edema of the lower extremities more on the left than the right --Has history of DVT in the past --Check Doppler ultrasound - no DVT, however there is calcification/foreign object noted. Per patient there should not be any foreign object. --Advised to elevate the legs when possible Rule out RA, SLE --Patient presents with diffuse arthralgias and myalgias, lower extremity edema, possible malar rash --Follow-up RF, BRI, jbfn-gnrbip-pehswycr DNA, C3/C4/C 50, ESR/CRP, antiphospholipid antibody Mild diastolic dysfunction --Not on diuretics --Patient on the dry side History of PACs/PVCs --Will be monitored in [facility] telemetry DVT prophylaxis --Lovenox daily Patient has history of DVT in the remote past CODE STATUS Full code per patient Position Anticipate discharge to home medically stable Admission and Anticipated Discharge Date Admission Date: February 20, 2020 Subjective 02/22/2020 The patient was seen and examined in medical telemetry unit She complains to have pain and swelling and redness involving the left lower extremity Denies any fever and/or chills, any nausea and/or vomiting Review of Systems Review of Systems: All systems reviewed and are unremarkable except as noted below Musculoskeletal: Swelling, redness, tenderness and heaviness involving the left lower extremity Physical Exam Physical Exam: Lying in bed with minimal distress due to left lower extremity pain Constitutional: well developed, well nourished, + ill appearing and + obese; no acute distress Eyes: PERRL, conjunctivae normal, anicteric sclerae ENMT: external ear and nose normal, oropharynx normal Neck: trachea midline, no thyromegaly Respiratory: normal respiratory effort; no respiratory distress Auscultation: lungs clear to auscultation bilaterally Cardiovascular: Rate/Rhythm: regular rate and regular rhythm Heart Sounds: no murmur Gastrointestinal (Abdomen): Inspection/Auscultation: abdomen normal to inspection and normal bowel sounds; abdomen not distended Percussion/Palpation: abdomen soft; abdomen nontender Musculoskeletal: No acute arthritis involving any joints. Left lower extremity swelling, erythematous, red, involving the leg, tender to palpate Results & Data Results & Data ([facility]) Vital Signs (Past 12 Hours) Vital Signs Temp Pulse Pulse Pulse Resp BP Pulse Ox 02/22/20 15:43 36.5 C 51 L 18 120/74 98 02/22/20 12:00 36.4 C L 56 L 18 109/73 100 02/22/20 07:28 63 02/22/20 07:26 36.8 C 59 L 18 106/69 97 Laboratory Results Short CBC 02/22/20 Range/Units 05:55 WBC 7.59 (4.8-10.8) K/uL Hgb 11.8 L (12.0-16.0) g/dL Hct 35.9 L (37-47) % Plt Count 205 (130-400) K/uL BMP 02/22/20 05:55 Sodium 143 Potassium 3.8 Chloride 115 H Carbon Dioxide 21 BUN 11 Creatinine 0.70 Glucose 109 H Calcium 8.7 Medications Administered Current Inpatient Medications Acetaminophen (Acetaminophen 325 Mg Tab) 650 mg PO Q6H PRN PRN Reason: fever/pain Stop: 03/22/20 00:56 Last Admin: 02/22/20 06:37 Dose: 650 mg Documented by: Calamine/Pramoxine (Calamine/Pramoxine Lotion 180 Appln/180 Ml Btl) 1 appln EXT Q2H PRN PRN Reason: dry skin Stop: 03/22/20 21:17 Last Admin: 02/22/20 14:31 Dose: 1 appln Documented by: Enoxaparin Sodium (Enoxaparin Inj 40 Mg/0.4 Ml Syr) 40 mg SQ QAM KARLA Stop: 03/22/20 08:59 Last Admin: 02/22/20 09:29 Dose: 40 mg Documented by: Daptomycin 225 mg/ Syringe 4.5 mls @ 2.25 mls/min IV Q24H KARLA; Protocol Stop: 02/28/20 01:14 Last Admin: 02/21/20 23:28 Dose: 2.25 mls/min Documented by: Piperacillin Sod/Tazobactam (Sod 3.375 gm/ Dextrose) 115 mls @ 28.75 mls/hr IV Q8H KARLA; Protocol Stop: 02/28/20 05:59 Last Admin: 02/22/20 14:27 Dose: 28.8 mls/hr Documented by: Ibuprofen (Ibuprofen 600 Mg Tab) 600 mg PO Q6H PRN PRN Reason: Headache Stop: 03/23/20 14:48 Last Admin: 02/22/20 15:22 Dose: 600 mg Documented by: Miscellaneous Information (Daptomycin Consult Active) 1 ea N/A UD PRN PRN Reason: Consult Stop: 03/22/20 01:06 Miscellaneous Information (Piperacill/Tazobac Consult Active) 1 ea N/A UD PRN PRN Reason: Consult Stop: 03/22/20 01:08 Multivitamins (Multivitamin Tab) 1 tab PO DAILY@1200 KARLA Stop: 03/22/20 11:59 Last Admin: 02/22/20 12:10 Dose: 1 tab Documented by: Ondansetron HCl (Ondansetron Inj 2 Mg/Ml 2 Ml Vial) 4 mg IV Q6H PRN PRN Reason: nausea Stop: 03/22/20 00:56 Zinc Acetate/Diphenhydramine (Diphenhydramine 2%/Zinc 0.1% Cream 28gm Tube) 1 appln EXT QID PRN PRN Reason: itchy skin Stop: 03/22/20 21:16 Last Admin: 02/22/20 06:30 Dose: 1 appln Documented by: (1) Sepsis Sepsis acute organ dysfunction status: without acute organ dysfunction Sepsis type: sepsis due to unspecified organism Qualified Code(s): A41.9 - Sepsis, unspecified organism
[2020-02-23] MEDS: DAPTOmycin 225 MG in SYRINGE 0 ML IV SCH (01:46)
[2020-02-23] MEDS: PIPERACILLIN/TAZOBACTAM 3.375 GM in DEXTROSE 5% 100 ML IV SCH (05:41)
[2020-02-23 07:36] LABS: Basophils # (auto) 0.03 K/uL (0-0.2); Basophils % (auto) 0.5 %; Eosinophils # (auto) 0.26 K/uL (0-0.5); Eosinophils % (auto) 4.4 %; Hematocrit (blood only) 36.4 % (37-47); Hemoglobin 11.8 g/dL (12.0-16.0); Immature Granulocytes # (auto) 0.01 K/uL (0.00-0.02); Immature Granulocytes % (auto) 0.2 %; Lymphocytes # (auto) 1.87 K/uL (1.2-3.4); Lymphocytes % (auto) 31.5 %; Mean Corpuscular Hemoglobin 29.8 pg (25-34); Mean Corpuscular Hgb Conc 32.4 g/dL (32-36); Mean Corpuscular Volume 91.9 fL (80-100); Mean Platelet Volume 11.5 fL (7.4-10.4); Monocytes # (auto) 0.45 K/uL (0.11-0.59); Monocytes % (auto) 7.6 %; Neutrophils # (auto) 3.32 K/uL (1.4-6.5); Neutrophils % (auto) 55.8 %; Platelet Count 224 K/uL (130-400); RDW Coefficient of Variation 15.2 % (11.5-14.5); RDW Standard Deviation 52.1 fL (36.4-46.3); Red Blood Count 3.96 M/uL (4.2-5.4); White Blood Count 5.94 K/uL (4.8-10.8)
[2020-02-23] MEDS: ENOXAPARIN INJ 40 MG/0.4 ML SYR SQ SCH (07:56)
[2020-02-23] MEDS: ACETAMINOPHEN 325 MG TAB PO PRN (07:57)
[2020-02-23 08:01] LABS: BUN Creatinine Ratio 17.2 (10-20); Calcium 8.8 mg/dl (8.5-10.1); Est GFR (African American) 107.2; Est GFR (Non-African American) 92.5; Potassium 3.6 mmol/L (3.5-5.1)
[2020-02-23] MEDS: MULTIVITAMIN TAB PO SCH (11:15)
[2020-02-23] MEDS: DiphenhydrAMINE 2%/ZINC 0.1% CREAM 28GM TUBE EXT PRN (11:16)
[2020-02-23] MEDS: IBUPROFEN 600 MG TAB PO PRN (14:35)
--- NOTE | 2020-02-23 14:45 | Hospitalist Progress Note ---
Date of Service February 23, 2020 Assessment & Plan (1) Sepsis: 65-year-old female with history of bilateral lower extremity edema, mild diastolic CHF, PACs and PVCs, remote history of DVT, Presenting with fever and generalized myalgias. Sepsis secondary to left lower leg cellulitis Urine and blood cultures have been negative She has been on intravenous daptomycin and Zosyn No fever and/or chills and no increase in white count We will change antibiotic to intravenous Unasyn and transition to oral Augmentin upon discharge No signs and/or symptoms of ongoing infection which is seems to be under control Cellulitis of the legs shows much improvement Will start oral Augmentin to continue for 7 more days as an outpatient She will be discharged home this afternoon Presented with a fever of 39.4 heart rate of 92, leukocytosis of 14,000 Lyme titers and anaplasmosis smear have been negative Chest x-ray no pneumonia, COVID screen negative, Edema of the lower extremities more on the left than the right --Has history of DVT in the past --Check Doppler ultrasound - no DVT, however there is calcification/foreign object noted. Per patient there should not be any foreign object. --Advised to elevate the legs when possible -Left leg edema has improved a lot Rule out RA, SLE --Patient presents with diffuse arthralgias and myalgias, lower extremity edema, possible malar rash --Follow-up RF, BRI, [id number] DNA, C3/C4/C 50, ESR/CRP, antipho spholipid antibody -Many of the blood tests results are pending for now Mild diastolic dysfunction --Not on diuretics --Patient on the dry side History of PACs/PVCs --Will be monitored in [facility] telemetry DVT prophylaxis --Lovenox daily Patient has history of DVT in the remote past CODE STATUS Full code per patient Position Anticipate discharge to home medically stable Admission and Anticipated Discharge Date Admission Date: February 20, 2020 Subjective 02/22/2020 The patient was seen and examined in medical telemetry unit She complains to have pain and swelling and redness involving the left lower extremity Denies any fever and/or chills, any nausea and/or vomiting 02/23/2020 The patient was seen and examined in medical telemetry unit Her symptoms of leg pain and swelling have improved Denies any fever and/or chills, any abdominal pain nausea and/or vomiting Review of Systems Review of Systems: All systems reviewed and are unremarkable except as noted below Musculoskeletal: Swelling, redness, tenderness and heaviness involving the left lower extremity Neurologic: + headache(s) Physical Exam Physical Exam: Lying in bed with minimal distress due to left lower extremity pain Constitutional: well developed, well nourished, + ill appearing and + obese; no acute distress Eyes: PERRL, conjunctivae normal, anicteric sclerae ENMT: external ear and nose normal, oropharynx normal Neck: trachea midline, no thyromegaly Respiratory: normal respiratory effort; no respiratory distress Auscultation: lungs clear to auscultation bilaterally Cardiovascular: Rate/Rhythm: regular rate and regular rhythm Heart Sounds: no murmur Extremities: + edema (Involving left lower extremity-improving) Gastrointestinal (Abdomen): Inspection/Auscultation: abdomen normal to inspection and normal bowel sounds; abdomen not distended Percussion/Palpation: abdomen soft; abdomen nontender Musculoskeletal: Ankle: + skin erythema (Involving the left leg) No acute arthritis in any joints Results & Data Results & Data ([facility]) Vital Signs (Past 12 Hours) Vital Signs Temp Pulse Resp BP Pulse Ox 02/23/20 11:51 36.4 C L 53 L 18 107/70 98 02/23/20 07:48 36.5 C 55 L 16 112/72 98 02/23/20 03:21 36.6 C 58 L 19 104/67 97 Laboratory Results Short CBC 02/23/20 Range/Units 06:38 WBC 5.94 (4.8-10.8) K/uL Hgb 11.8 L (12.0-16.0) g/dL Hct 36.4 L (37-47) % Plt Count 224 (130-400) K/uL BMP 02/23/20 06:38 Sodium 145 Potassium 3.6 Chloride 115 H Carbon Dioxide 22 BUN 11 Creatinine 0.65 Glucose 83 Calcium 8.8 Medications Administered Current Inpatient Medications Acetaminophen (Acetaminophen 325 Mg Tab) 650 mg PO Q6H PRN PRN Reason: fever/pain Stop: 03/22/20 00:56 Last Admin: 02/23/20 07:57 Dose: 650 mg Documented by: Amoxicillin/Clavulanate Potassium (Amoxicillin/Clavulanate 875 Mg Tab) 1 tab PO BIDM KARLA Stop: 03/01/20 16:59 Calamine/Pramoxine (Calamine/Pramoxine Lotion 180 Appln/180 Ml Btl) 1 appln EXT Q2H PRN PRN Reason: dry skin Stop: 03/22/20 21:17 Last Admin: 02/22/20 14:31 Dose: 1 appln Documented by: Enoxaparin Sodium (Enoxaparin Inj 40 Mg/0.4 Ml Syr) 40 mg SQ QAM KARLA Stop: 03/22/20 08:59 Last Admin: 02/23/20 07:56 Dose: 40 mg Documented by: Ibuprofen (Ibuprofen 600 Mg Tab) 600 mg PO Q6H PRN PRN Reason: Headache Stop: 03/23/20 14:48 Last Admin: 02/23/20 14:35 Dose: 600 mg Documented by: Multivitamins (Multivitamin Tab) 1 tab PO DAILY@1200 KARLA Stop: 03/22/20 11:59 Last Admin: 02/23/20 11:15 Dose: 1 tab Documented by: Ondansetron HCl (Ondansetron Inj 2 Mg/Ml 2 Ml Vial) 4 mg IV Q6H PRN PRN Reason: nausea Stop: 03/22/20 00:56 Zinc Acetate/Diphenhydramine (Diphenhydramine 2%/Zinc 0.1% Cream 28gm Tube) 1 appln EXT QID PRN PRN Reason: itchy skin Stop: 03/22/20 21:16 Last Admin: 02/23/20 11:16 Dose: 1 appln Documented by: (1) Sepsis Sepsis acute organ dysfunction status: without acute organ dysfunction Sepsis type: sepsis due to unspecified organism Qualified Code(s): A41.9 - Sepsis, unspecified organism
--- NOTE | 2020-02-23 16:40 | Discharge Summary ---
Date of Service February 23, 2020 Admission HPI Per Admitting Provider 65-year-old female with history of bilateral lower extremity edema, mild diastolic CHF, PACs and PVCs, remote history of DVT, Presenting with fever and generalized myalgias. Earlier this year, the patient has been worked up for lower extremity edema and palpitations. Cardiogram revealed mild diastolic dysfunction, and Holter monitor revealed PACs/PVCs. 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 Patient reports persistent lower leg edema as well as arthralgias including upper extremities and hips. She was at her usual baseline state of health until yesterday evening when she started to have fevers and chills, associated with diffuse myalgias and arthralgias. Persistence of symptoms prompted consult to the ER. At the ER, patient was received with a fever of 39.4, heart rate of 92, blood pressure 114/67. Physical exam revealed left lower leg erythema and edema. Count 14,000 COVID screen negative, chest x-ray no signs of pneumonia or infiltrates, Lyme screen negative On exam, the patient states that she still feels fatigued, with diffuse myalgias and arthralgias. Reports left lower extremity discomfort as well, mild frontal headache. Denies cough, shortness of breath, chest pain abdominal pain, problems urination or bowel movement. No other symptoms Primary Care Provider: NO PCP Admission Exam Per Admitting Provider Physical Exam: General- oriented x 3, not in distress, speaks in sentences with no effort or accessory muscle use Appears weak Head- atraumatic Face-positive malar rash Eyes- PERRL, EOMI, anicteric ENT- oropharynx clear Neck- supple, no JVD, no adenopathy, no thyromegaly; carotids +2/2, no bruits appreciated Lungs- clear to auscultation bilaterally, no rales/wheezes Heart- normal rate, regular rhythm; no murmur, no gallop, no rub appreciated Abdomen- normal bowel sounds, nondistended, soft, nontender, no masses or hepatosplenomegaly Extremities-left lower leg: Positive significant erythema, moderate edema, moderate warmth, moderate tenderness, Right lower extremity: Mild lower leg edema, no erythema/warmth/tenderness Neuro- alert, oriented x 3; CN 2-12 grossly intact; motor 5/5 bilaterally;sensation 100% on all extremities; no other gross focal neurologic deficits Skin- warm & dry Principal Diagnosis Sepsis secondary to left leg cellulitis, edema of the left lower extremity, mild diastolic heart failure, Discharge Exam Constitutional well developed, well nourished, + ill appearing and + obese; no acute distress Eyes PERRL, conjunctivae normal, anicteric sclerae ENMT external ear and nose normal, oropharynx normal Neck trachea midline, no thyromegaly Respiratory normal respiratory effort; no respiratory distress Auscultation: lungs clear to auscultation bilaterally Cardiovascular Rate/Rhythm: regular rate and regular rhythm Heart Sounds: no murmur Extremities: + edema (Involving left lower extremity-improving) Gastrointestinal (Abdomen) Inspection/Auscultation: abdomen normal to inspection and normal bowel sounds; abdomen not distended Percussion/Palpation: abdomen soft; abdomen nontender Musculoskeletal Ankle: + skin erythema (Involving the left leg) Discharge Data Allergies Allergy/AdvReac Type Severity Reaction Status Date / Time iodine Allergy Unknown RASH Unverified 02/20/20 20:43 gluten AdvReac Unknown Gastrointestinal Verified 02/21/20 14:42 Upset Consultations 02/20/20 21:54 ED Decision to Admit Stat Ordered Studies 02/21/20 00:57 US venous doppler LE LT Urgent Hospital Course (1) Sepsis: 65-year-old female with history of bilateral lower extremity edema, mild diastolic CHF, PACs and PVCs, remote history of DVT, Presenting with fever and generalized myalgias. Sepsis secondary to left lower leg cellulitis Urine and blood cultures have been negative She has been on intravenous daptomycin and Zosyn No fever and/or chills and no increase in white count We will change antibiotic to intravenous Unasyn and transition to oral Augmentin upon discharge No signs and/or symptoms of ongoing infection which is seems to be under control Cellulitis of the legs shows much improvement Will start oral Augmentin to continue for 7 more days as an outpatient She will be discharged home this afternoon Presented with a fever of 39.4 heart rate of 92, leukocytosis of 14,000 Lyme titers and anaplasmosis smear have been negative Chest x-ray no pneumonia, COVID screen negative, Edema of the lower extremities more on the left than the right --Has history of DVT in the past --Check Doppler ultrasound - no DVT, however there is calcification/foreign object noted. Per patient there should not be any foreign object. --Advised to elevate the legs when possible -Left leg edema has improved a lot Rule out RA, SLE --Patient presents with diffuse arthralgias and myalgias, lower extremity edema, possible malar rash --Follow-up RF, BRI, [id number] DNA, C3/C4/C 50, ESR/CRP, antiphospholipid antibody -Many of the blood tests results are pending for now Mild diastolic dysfunction --Not on diuretics --Patient on the dry side History of PACs/PVCs --Will be monitored in [facility] telemetry DVT prophylaxis --Lovenox daily Patient has history of DVT in the remote past CODE STATUS Full code per patient Position Anticipate discharge to home medically stable Total Time Total Time Spent Total Time Spent (In Minutes): 35 minutes Total Time Includes: Examination of the Patient, Discharge Planning, Medication Reconciliation and Communication With Other Providers Discharge Plan Discharge Items Patient Disposition: Home - Self-Care Reason For Visit: SEPSIS,LEFT LEG CELLULITIS Discharge Diagnosis: Sepsis secondary to left leg cellulitis, edema of the left lower extremity, mild diastolic heart failure, Condition on Discharge: Fair Activity: Resume your previous activity Non-emergency contact: Primary Care Provider Call non-emergency contact if: you have any medication questions and your symptoms worsen Follow-up/Referrals: Clarita Davila DO [Outside Practitioners] - 03/01/20 11:00 am (03/01/2020 11:00 AM Provider Papo Andrea DO Department Family [facility] ) Diet: Regular Addtl Attending Provider Instructions: Please take precaution to avoid fall Try to keep your left leg elevated while in bed Pending Studies at Discharge: Yes Studies:: Immunological test to rule out rheumatic disease Stand-Alone Forms: [employer] Smoking Cessation Medications and DC Order Prescriptions: New amoxicillin-pot clavulanate [Augmentin] 875-125 mg Tablet 1 tab PO BIDM 7 Days Qty: 14 RF: 0 Lactinex 1 million cell tablet,chewable 1 tab PO BID Qty: 30 RF: 0 Continued multivitamin Tablet 1 tab PO DAILY@1200 RF: 0 Discharge Orders: Discharge Order (Routine); Ordered 02/23/20 Ordered By: Carole Adair Admission Data Admit Date/Time: 02/20/20 23:12 Attending Provider: Carole Adair Admit Provider: Jefry Soler Primary Care Provider: PCP,NO Other Providers: Bill Lucia ; Jefry Soler ; Nathanael Naranjo Other Interventions: Discharge Summary Assessment (RN) Last Done: 02/23/20 15:13
[2020-02-23] MEDS ORDERED: AMOXICILLIN/CLAVULANATE 875 MG TAB PO SCH (17:00)
[2020-02-24 23:02] LABS: Anti Nuclear Antibody Screen NEGATIVE (NEGATIVE); Anti-dsDNA Recombinant <1 IU/mL; B2 Glycoprotein IgA <9 SAU (<=20); B2 Glycoprotein IgG <9 SGU (<=20); B2 Glycoprotein IgM <9 SMU (<=20); Complement C3 129 mg/dL (83-193); Complement Total(CH50) >60 U/mL (31-60); Phosphatidylserine IgG <10 U/mL (<10); Phosphatidylserine IgM <25 U/mL (<25); Rheumatoid Factor 18 IU/mL (<14)
== END 2020-02-23 15:42 | disposition home or self-care (01) | DRG 872 ==
LOC: ED 18:50 → 2N 23:12 → SUATTDRO 23:12 → 2N 23:56